=== PATIENT | male | born 1955 | race Caucasian/White ===

== ENCOUNTER 2020-01-14 13:06 | Emergency (ER) | payer MEDICARE ==
[2020-01-14] MEDS ORDERED: KETOROLAC TROMETHAMINE 60 MG/2 ML SDV IV ONE (13:53)
[2020-01-14] MEDS ORDERED: NORMAL SALINE 1000 ML 1,000 ML IV PRN (13:53)
--- NOTE | 2020-01-14 13:56 | ER Document Report ---
ED Medical Screen (RME) - General Chief Complaint: Flank Pain Stated Complaint: FLANK PAIN Time Seen by Provider: 01/14/20 13:52 Mode of Arrival: Wheelchair Information source: Patient Notes: This 64-year-old male who presented to the emergency room today stating that he had flank pain radiating around the right side has a history of kidney stones this feels quite similar. - Related Data Allergies/Adverse Reactions: Penicillins Allergy (Verified 01/14/20 13:50) Past Medical History - Social History Frequency of alcohol use: None Drug Abuse: None Physical Exam - Vital signs Vitals: Temp Pulse Resp BP Pulse Ox 98.0 F 61 16 143/110 H 96 01/14/20 13:18 01/14/20 13:18 01/14/20 13:18 01/14/20 13:18 01/14/20 13:18 Course - Vital Signs Vital signs: Temp Pulse Resp BP Pulse Ox 98.0 F 61 16 143/110 H 96 01/14/20 13:50 01/14/20 13:18 01/14/20 13:18 01/14/20 13:18 01/14/20 13:18
--- NOTE | 2020-01-14 14:40 | ER Document Report ---
ED General - General Chief Complaint: Flank Pain Stated Complaint: FLANK PAIN Time Seen by Provider: 01/14/20 13:52 Primary Care Provider: MG COLE MD [NO LOCAL MD] - Follow up as needed Mode of Arrival: Wheelchair Information source: Patient TRAVEL OUTSIDE OF THE [place] IN LAST 30 DAYS: No - HPI Onset: Last week Onset/Duration: Gradual Quality of pain: Sharp, Throbbing Severity: Moderate Pain Level: 3 Associated symptoms: Nausea, Vomiting Exacerbated by: Movement Relieved by: Remaining still Similar symptoms previously: Yes - once several months ago Recently seen / treated by doctor: No Notes: 64 year old male with a history of Ulcerative Colitis maintained on Remicade here in the ER for 6 days of left sided flank pain which radiates to his left groin and is associated with nausea and vomiting. The patient denies urinary symptoms, fevers, chills, sweats, diarrhea. The patient says that he had similar symptoms several months ago and he saw his PCP who said he likely had a kidney stone that passed but he never had imaging to confirm a diagnosis. - Related Data Allergies/Adverse Reactions: Penicillins Allergy (Verified 01/14/20 13:50) Past Medical History - General Information source: Patient - Social History Smoking Status: Never Smoker Frequency of alcohol use: None Drug Abuse: None Lives with: Family Family History: Reviewed & Not Pertinent Patient has suicidal ideation: No Patient has homicidal ideation: No Review of Systems - Review of Systems Constitutional: No symptoms reported EENT: No symptoms reported Cardiovascular: No symptoms reported Respiratory: No symptoms reported Gastrointestinal: Abdominal pain, Nausea, Vomiting Genitourinary: Flank pain Male Genitourinary: No symptoms reported Musculoskeletal: No symptoms reported Skin: No symptoms reported Hematologic/Lymphatic: No symptoms reported Neurological/Psychological: No symptoms reported -: Yes All other systems reviewed and negative Physical Exam - Vital signs Vitals: Temp Pulse Resp BP Pulse Ox 98.0 F 61 16 143/110 H 96 01/14/20 13:18 01/14/20 13:18 01/14/20 13:18 01/14/20 13:18 01/14/20 13:18 - Notes Notes: GENERAL: Well-appearing, well-nourished and in no acute distress. HEAD: Atraumatic, normocephalic. EYES: Pupils equal round and reactive to light, extraocular movements intact, sclera anicteric, conjunctiva are normal. ENT: External ears normal, nares patent, oropharynx clear without exudates. Moist mucous membranes. NECK: Normal range of motion, supple without lymphadenopathy or JVD. LUNGS: Breath sounds clear to auscultation bilaterally and equal. No wheezes rales or rhonchi. HEART: Regular rate and rhythm without murmurs, rubs or gallops. ABDOMEN: Soft, mild left upper quadrant tenderness, normoactive bowel sounds. No guarding, no rebound. No masses appreciated. BACK: Moderate Left Flank Tenderness EXTREMITIES: Normal range of motion, no pitting or edema. No clubbing or cyanosis. NEUROLOGICAL: Cranial nerves II through XII grossly intact. Normal speech, normal gait. PSYCH: Normal mood, normal affect. SKIN: Warm, Dry, normal turgor, no rashes or lesions noted. Course - Re-evaluation Re-evalutation: 01/15/20 05:41 The patient has bilateral kidney stones and a 7mm nonobstructing stone in his ureter. Patient's pain was controlled in the ER for Toradol and Morphine. Patient DC with scripts for flomax, zofran, and percocet and he was referred to Urology. - Vital Signs Vital signs: Temp Pulse Resp BP Pulse Ox 98.4 F 88 16 156/80 H 97 01/14/20 16:37 01/14/20 16:37 01/14/20 16:37 01/14/20 16:37 01/14/20 16:37 - Laboratory Result Diagrams: 01/14/20 14:49 01/14/20 14:49 Laboratory results interpreted by me: 01/14/20 01/14/20 01/14/20 13:15 14:49 14:49 WBC 12.1 H Lymph % (Auto) 5.7 L Absolute Neuts (auto) 10.8 H Seg Neutrophils % 88.7 H Creatinine 1.36 H Est GFR (MDRD) Non-Af 53 L Glucose 152 H Total Protein 8.6 H Urine Ketones TRACE H Urine Blood SMALL H Urine Ascorbic Acid 40 H - Diagnostic Test Radiology reviewed: Image reviewed, Reports reviewed Discharge - Discharge Clinical Impression: Kidney calculus Condition: Stable Disposition: HOME, SELF-CARE Instructions: Kidney Stone ([facility]) Additional Instructions: You have multiple kidney stones and the one that is causing your pain is 7mm. You should follow up with Urologist as soon as possible for further treatment. Dr. Cole is a local Urologist. Take Flomax as prescribed, drink plenty of water in the days to come, use zofran as needed for nausea and use percocet for pain not well controlled with over the counter Ibuprofen (take 600mg at a time). Prescriptions: Tamsulosin HCl [Flomax] 0.4 mg PO DAILY #30 cap.er.24h Oxycodone HCl/Acetaminophen [Percocet 5-325 mg Tablet] 1 tab PO Q8H PRN #8 tab PRN Reason: Ondansetron [Zofran Odt 4 mg Tablet] 4 mg PO Q8H #15 tab.rapdis Referrals: MG COLE MD [NO LOCAL MD] - Follow up as needed
[2020-01-14] MEDS ORDERED: KETOROLAC TROMETHAMINE INJ/PF 30 MG/1 ML SDV IV ONE ×2 (14:41→14:56)
[2020-01-14] MEDS ORDERED: ONDANSETRON HCL INJ/PF 4 MG/2 ML SDV IV ONE (14:56)
[2020-01-14 15:11] LABS: ABSOLUTE LYMPHOCYTES (AUTO) 0.7 10^3/uL (0.5-4.7); ABSOLUTE MONOCYTES (AUTO) 0.6 10^3/uL (0.1-1.4); ABSOLUTE NEUT (AUTO) 10.8 10^3/uL (1.7-8.2); BASOPHILS % (AUTO) 0.3 % (0-2); LYMPHOCYTES % (AUTO) 5.7 % (13-45); MEAN CORPUSCULAR HEMOGLOBIN 31.9 pg (27.0-33.4); MEAN CORPUSCULAR HGB CONC 34.8 g/dL (32.0-36.0); MEAN CORPUSCULAR VOLUME 92 fl (80-97); MONOCYTES % (AUTO) 5.3 % (3-13); PLATELET COUNT 228 10^3/uL (150-450); RED BLOOD COUNT 4.69 10^6/uL (4.35-5.55); RED CELL DISTRIBUTION WIDTH 13.7 % (11.5-14.0); SEGMENTED NEUTROPHILS % (AUTO) 88.7 % (42-78); TOTAL CELLS COUNTED % (AUTO) 100 %; WHITE BLOOD COUNT 12.1 10^3/uL (4.0-10.5)
--- NOTE | 2020-01-14 15:20 | RADIOLOGY REPORT (SQ) ---
EXAM DESCRIPTION: CT ABD/PELVIS NO ORAL OR IV IMAGES COMPLETED DATE/TIME: 01/14/2020 2:57 pm REASON FOR STUDY: pain COMPARISON: None. TECHNIQUE: CT scan of the abdomen and pelvis performed without intravenous or oral contrast. Images reviewed with lung, soft tissue, and bone windows. Reconstructed coronal and sagittal MPR images revi ewed. All images stored on PACS. All CT scanners at this facility use dose modulation, iterative reconstruction, and/or weight based d osing when appropriate to reduce radiation dose to as low as reasonably achievable (ALARA). [facility]: Dose Right [facility]: CareDose [facility]: Dose Right [facility]: Teradose 4D [facility]: Smart CO Everywhere RADIATION DOSE: CT Rad equipment meets quality standard of care and radiation dose reduction techniq ues were employed. CTDIvol: 16.6 mGy. DLP: 988 mGy-cm. LIMITATIONS: None. FINDINGS: LOWER CHEST: No significant findings. No nodules or infiltrates. NON-CONTRASTED LIVER, SPLEEN, ADRENALS: Evaluation limited by lack of IV contrast. No identified sign ificant masses. PANCREAS: No masses. No peripancreatic inflammatory changes. GALLBLADDER: No identified stones by CT criteria. No inflammatory changes to suggest cholecystitis. RIGHT KIDNEY AND URETER: Several right renal calculi. The largest is in the upper pole measures 7-8 mm. Small right renal cyst. Assessment limited by lack of IV contrast. LEFT KIDNEY AND URETER: A 7 mm calculus in the distal left ureter approximately 1.0 cm from the uret erovesical junction, axial image 85, series 3. This finding results in mild to moderate dilatation o f the left renal collecting system and left ureter. Linear soft tissue stranding in the left perinep hric space likely on the basis of inflammatory changes. Multiple small subcentimeter nonobstructing calculi in the left kidney with some of the largest measu ring 3-4 mm. AORTA AND RETROPERITONEUM: No aneurysm. No retroperitoneal masses or adenopathy. BOWEL AND PERITONEAL CAVITY: No obvious masses or inflammatory changes. No free fluid. APPENDIX: Normal. PELVIS, BLADDER, AND ABDOMINAL WALL:No abnormal masses. No free fluid. Bladder normal. BONES: Dextroconvex scoliosis thoracic spine. OTHER: Small hiatal hernia. IMPRESSION: 1. A distal left ureteral calculus results in mild to moderate dilatation of the left r enal collecting system and ureter. Mild inflammatory changes in the left perinephric space. 2. Bilateral nonobstructing nephrolithiasis. 3. Additional findings as above. COMMENT: Quality ID # [id number]: Final reports with documentation of one or more dose reduction techniques (e.g., Automated exposure control, adjustment of the mA and/or kV according to patient size, use of iterative reconstruction technique) TECHNICAL DOCUMENTATION: JOB ID: [id number] 2010 [employer]- All Rights Reserved Reading location - IP/workstation name: [email or web address]
[2020-01-14 15:31] LABS: ALKALINE PHOSPHATASE 61 U/L (38-126); ANION GAP 10 (5-19); ASPARTATE AMINO TRANSFERASE 43 U/L (17-59); BILIRUBIN,DIRECT 0.1 mg/dL (0.0-0.4); BILIRUBIN,TOTAL 0.8 mg/dL (0.2-1.3); BLOOD UREA NITROGEN 17 mg/dL (7-20); CALCIUM 9.7 mg/dL (8.4-10.2); CARBON DIOXIDE 27 mmol/L (22-30); CHLORIDE 101 mmol/L (98-107); GLUCOSE 152 mg/dL (75-110); POTASSIUM 4.4 mmol/L (3.6-5.0); TOTAL PROTEIN 8.6 g/dL (6.3-8.2)
[2020-01-14] MEDS ORDERED: MORPHINE SULFATE 10 MG/ML INJ IV ONE (15:36)
[2020-01-14 16:04] LABS: AMORPHOUS SEDIMENT,URINE 1+ /HPF; APPEARANCE,URINE TURBID; BILIRUBIN,URINE NEGATIVE (NEGATIVE); COLOR,URINE YELLOW; GLUCOSE, URINE NEGATIVE (NEGATIVE); KETONES,URINE TRACE mg/dL (NEGATIVE); LEUKOCYTE ESTERASE,URINE NEGATIVE (NEGATIVE); NITRITE,URINE NEGATIVE (NEGATIVE); PROTEIN,URINE NEGATIVE (NEGATIVE); URINE SPECIFIC GRAVITY 1.027; UROBILINOGEN,URINE NEGATIVE mg/dL (<2.0)
[2020-01-14 16:39] VITALS: BP 156/80
== END 2020-01-14 16:53 | disposition home or self-care (01) ==
LOC: ER 13:06
DX: N20.2 Calculus of kidney with calculus of ureter (principal); K51.90 Ulcerative colitis, unspecified, without complications; R10.9 Unspecified abdominal pain; R10.812 Left upper quadrant abdominal tenderness; R11.2 Nausea with vomiting, unspecified; Z79.899 Other long term (current) drug therapy; Z88.0 Allergy status to penicillin
CPT/HCPCS: 99284; 96361; 96374; 96375; 36415; 83690; 85025; 80053; 81001; 74176; J1885; J2270; J2405; J7030